=== PATIENT | female | born 1980 | race African-American/Black ===

== ENCOUNTER 2019-07-21 12:41 | Emergency (ER) | payer MEDICAID, OTHER ==
[~2019-07-21] VITALS: Ht 162.6 cm; Wt 89.0 kg
[2019-07-21 12:54] VITALS: BP 135/83
[2019-07-21] MEDS ORDERED: IBUPROFEN 600MG TABLET PO ONE (13:30)
[2019-07-21] MEDS ORDERED: PREDNISONE 20MG TABLET PO ONE (13:30)
== END 2019-07-21 14:20 | disposition home or self-care (01) ==
LOC: ER 12:41
DX: J03.90 Acute tonsillitis, unspecified (principal)
CPT/HCPCS: 87430; 99283; J7512